=== PATIENT | female | born 1995 | race African-American/Black ===

== ENCOUNTER 2016-12-31 20:08 | Emergency (ER) | payer BC ==
[~2016-12-31] VITALS: Ht 165.1 cm; Wt 67.7 kg
[2016-12-31 20:14] VITALS: TEMP 37; Ht 165.1 cm; Wt 67.7 kg
[2016-12-31] MEDS ORDERED: SODIUM CHLORIDE 0.9% 1000ML 1,000 ML IV STA (20:30)
[2016-12-31 21:43] LABS: PARTIAL THROMBOPLASTIN RATIO 1.2; PROTHROMBIN TIME (PATIENT) 10.3 SECONDS (9.0-12.0)
[2016-12-31 21:49] LABS: URINE APPEARANCE CLEAR (CLEAR); URINE BILIRUBIN NEG (NEG); URINE COLOR YELLOW; URINE NITRITE NEG (NEG); URINE SPECIFIC GRAVITY 1.018 (1.000-1.030); UROBILINOGEN NEG (NEG)
[2016-12-31 21:50] LABS: BUN/CREATININE RATIO 11.5 (10-20); CALCIUM 9.6 mg/dl (8.5-10.1); CREATININE 0.73 mg/dl (0.60-1.20); POTASSIUM 3.4 mmol/L (3.5-5.1)
[2016-12-31 21:51] LABS: MANUAL MICROSCOPIC REQUIRED? NO; REVIEW REQ? NO
[2016-12-31 22:16] LABS: HEMATOCRIT 37.5 % (37-47); MEAN CELL VOLUME 83.9 fL (80-100); MEAN CORPUSCULAR HEMOGLOBIN 28.9 pg (25-34); MEAN CORPUSCULAR HGB CONC 34.4 g/dl (32-36); MEAN PLATELET VOLUME 9.5 fL (7.4-10.4); PLATELET COUNT 249 K/uL (130-400); RED BLOOD COUNT 4.47 M/uL (4.2-5.4); WHITE BLOOD COUNT 2.93 K/uL (4.8-10.8)
[2016-12-31 22:17] LABS: COMPLETE YES; EOS % 5.5 %; LYMPH % 58.7 %; LYMPH ABS # 1.72 K/uL (1.2-3.4); MONO % 6.1 %; NEUT % 29.7 %; PLT ESTIMATE NORMAL
--- NOTE | 2016-12-31 22:35 | DIAGNOSTIC IMAGING REPORT ---
ABDOMEN LIMITED (US) CLINICAL HISTORY: 21 years-old Female presenting with eval for appendicitis, right lower quadrant pain, pain the lower and mid abdomen. TECHNIQUE: Real-time grayscale and limited color Doppler ultrasound imaging of the right lower quadrant was performed to evaluate the appendix. COMPARISON: None. FINDINGS: Appendix not visualized. No free fluid or hyperechogenic fat to suggest secondary signs of inflammation. Prominent right lower quadrant lymph nodes, the largest measuring 1.7 x 0.4 x 1.9 cm. IMPRESSION: Appendix not visualized, although no secondary signs of inflammation. This does not exclude the diagnosis of appendicitis. Electronically signed by: Sánchez Koroma M.D. 12/31/2016 10:33 PM Dictated Date/Time: 12/31/2016 10:32 PM
--- NOTE | 2016-12-31 22:37 | DIAGNOSTIC IMAGING REPORT ---
PELVIC COMPLETE NON OB, TRANSVAG-FEMALE PELVIS CLINICAL HISTORY: 21 years-old Female presenting with eval fro cyst/torsion, right lower quadrant and mid abdominal pain. Irregular menstrual cycles, last period 2 weeks ago. TECHNIQUE: Real-time grayscale and color and spectral Doppler ultrasound imaging of the pelvis was performed first using a transabdominal probe and subsequently transvaginal for better characterization. COMPARISON: None. FINDINGS: Uterus: Normal. Anteverted. The uterus measures 7.0 x 2.8 x 4.1 cm. Endometrial stripe measures 1 mm in thickness. Endometrium normal-appearing. Cervix normal. Right adnexa: Right ovary normal. Right ovary measures 3.9 x 1.7 x 2.3 cm. Normal color Doppler flow and arterial and venous waveforms within the ovarian parenchyma. Left adnexa: Left ovary likely contains a dominant follicle. Left ovary measures 3.0 x 1.8 x 2.0 cm. Normal color Doppler flow and arterial and venous waveforms within the ovarian parenchyma. Other: Trace free fluid, likely physiologic. IMPRESSION: No evidence of ovarian torsion. Normal pelvic ultrasound. Electronically signed by: Sánchez Koroma M.D. 12/31/2016 10:36 PM Dictated Date/Time: 12/31/2016 10:33 PM
[2016-12-31] MEDS ORDERED: OPTIRAY 320 IV PRN (23:30)
--- NOTE | 2017-01-01 01:10 | EMERGENCY ROOM VISIT NOTE ---
History Report prepared by Kimi: Nell Prado Under the Supervision of: Dr. Randy Knight M.D. First contact with patient: 20:17 Chief Complaint: ABDOMINAL PAIN Stated Complaint: PAIN IN LOWER/MID ABDOMEN, MUSCLE SPASM History of Present Illness The patient is a 21 year old female who presents to the Emergency Room with complaints of persistent RLQ abdominal pain starting 1.5 weeks ago. The pain started during her period leading her to think she was having some menstrual cramps. She presents to the ED today because her pain persists and she has had her period for 2 weeks now. She describes the pain as sharp. She is still having vaginal bleeding. She has had diarrhea for the past week. Her diarrhea is soft and not watery. She denies any urinary symptoms, fever, vomiting, or abnormal vaginal discharge. She denies any recent travel or oral antibiotic use. She does not have any medical problems. She denies any previous abdominal surgeries. She is sexually active. Her last sexual intercourse was 5 days ago. She does not always use a condom. She denies any prior pregnancies. Source of History: patient Onset: 1.5 weeks ago Position: abdomen (RLQ) Quality: sharp Timing: other (persistent) Associated Symptoms: + diarrhea, No fevers, No vomiting, No urinary symptoms Note: Pt reports vaginal bleeding. Pt denies abnormal vaginal discharge. Review of Systems See HPI for pertinent positives & negatives. A total of 10 systems reviewed and were otherwise negative. Past Medical & Surgical Medical Problems: (1) No significant past medical history Social History Smoking Status: Never Smoker Current/Historical Medications No Active Prescriptions or Reported Meds Allergies Coded Allergies: No Known Allergies (Unverified , 12/31/16) Physical Exam Vital Signs Date Time Temp Pulse Resp B/P (MAP) Pulse Ox O2 Delivery O2 Flow Rate FiO2 12/31/16 23:02 62 18 136/82 99 Room Air 12/31/16 21:39 77 18 126/76 96 Room Air 12/31/16 20:14 37.0 73 18 124/79 97 Room Air Physical Exam Constitutional: Vital signs reviewed. Eyes: Pupils are equal round reactive to light. Conjunctiva are noninjected. ENT: Pharynx is clear without erythema or exudate. Mucous membranes are moist. Neck supple without meningeal signs. Respiratory: Clear to auscultation bilaterally. Breath sounds are equal bilaterally. Cardiovascular: Regular rate and rhythm. No rubs or gallops. GI: Soft, nondistended. RLQ tenderness. No guarding. Bowel sounds are present. Musculoskeletal: No peripheral edema. No lower extremity tenderness. Integumentary: No cyanosis. Neurological: The patient is awake and alert. No focal deficits. Psychiatric: Normal affect. Medical Decision & Procedures Laboratory Results 12/31/16 20:50 Red Blood Count 4.47, Mean Corpuscular Volume 83.9, Mean Corpuscular Hemoglobin 28.9, Mean Corpuscular Hemoglobin Concent 34.4, Mean Platelet Volume 9.5, Neutrophils (%) (Auto) 29.7, Lymphocytes (%) (Auto) 58.7, Monocytes (%) (Auto) 6.1, Eosinophils (%) (Auto) 5.5, Basophils (%) (Auto) 0.0, Neutrophils # (Auto) 0.87, Lymphocytes # (Auto) 1.72, Monocytes # (Auto) 0.18, Eosinophils # (Auto) 0.16, Basophils # (Auto) 0.00 12/31/16 20:50 Test 12/31/16 20:50 12/31/16 21:15 12/31/16 23:19 White Blood Count 2.93 K/uL (4.8-10.8) Red Blood Count 4.47 M/uL (4.2-5.4) Hemoglobin 12.9 g/dL (12.0-16.0) Hematocrit 37.5 % (37-47) Mean Corpuscular Volume 83.9 fL (80-100) Mean Corpuscular Hemoglobin 28.9 pg (25-34) Mean Corpuscular Hemoglobin Concent 34.4 g/dl (32-36) Platelet Count 249 K/uL (130-400) Mean Platelet Volume 9.5 fL (7.4-10.4) Neutrophils (%) (Auto) 29.7 % Lymphocytes (%) (Auto) 58.7 % Monocytes (%) (Auto) 6.1 % Eosinophils (%) (Auto) 5.5 % Basophils (%) (Auto) 0.0 % Neutrophils # (Auto) 0.87 K/uL (1.4-6.5) Lymphocytes # (Auto) 1.72 K/uL (1.2-3.4) Monocytes # (Auto) 0.18 K/uL (0.11-0.59) Eosinophils # (Auto) 0.16 K/uL (0-0.5) Basophils # (Auto) 0.00 K/uL (0-0.2) RDW Standard Deviation 40.2 fL (36.4-46.3) RDW Coefficient of Variation 13.2 % (11.5-14.5) Immature Granulocyte % (Auto) 0.0 % Immature Granulocyte # (Auto) 0.00 K/uL (0.00-0.02) Platelet Estimate NORMAL Prothrombin Time 10.3 SECONDS (9.0-12.0) Prothromb Time International Ratio 1.0 (0.9-1.1) Activated Partial Thromboplast Time 30.9 SECONDS (21.0-31.0) Partial Thromboplastin Ratio 1.2 Anion Gap 7.0 mmol/L (3-11) Est Creatinine Clear Calc Drug Dose 110.6 ml/min Estimated GFR () 137.4 Estimated GFR (Non- 118.6 BUN/Creatinine Ratio 11.5 (10-20) Calcium Level 9.6 mg/dl (8.5-10.1) Total Bilirubin 0.3 mg/dl (0.2-1) Direct Bilirubin 0.1 mg/dl (0-0.2) Aspartate Amino Transf (AST/SGOT) 17 U/L (15-37) Alanine Aminotransferase (ALT/SGPT) 14 U/L (12-78) Alkaline Phosphatase 68 U/L (45-117) Total Protein 7.7 gm/dl (6.4-8.2) Albumin 4.2 gm/dl (3.4-5.0) Lipase 162 U/L (73-393) Human Chorionic Gonadotropin, Quant < 1 mIU/mL Urine Color YELLOW Urine Appearance CLEAR (CLEAR) Urine pH 5.0 (4.5-7.5) Urine Specific [place] 1.018 (1.000-1.030) Urine Protein NEG (NEG) Urine Glucose (UA) NEG (NEG) Urine Ketones TRACE (NEG) Urine Occult Blood TRACE (NEG) Urine Nitrite NEG (NEG) Urine Bilirubin NEG (NEG) Urine Urobilinogen NEG (NEG) Urine Leukocyte Esterase TRACE (NEG) Urine WBC (Auto) 5-10 /hpf (0-5) Urine RBC (Auto) 0-4 /hpf (0-4) Urine Hyaline Casts (Auto) 1-5 /lpf (0-5) Urine Epithelial Cells (Auto) 10-20 /lpf (0-5) Urine Bacteria (Auto) NEG (NEG) Urine Test NEG (NEG) Medications Administered Medications (Trade) Dose Ordered Sig/Aracely Route Start Time Stop Time Status Last Admin Dose Admin Sodium Chloride 1,000 ml @ 999 mls/hr Q1H1M STAT IV 12/31/16 20:30 12/31/16 21:30 DC 12/31/16 20:30 999 MLS/HR ED Course 2025: The patient was evaluated in room C12B. A complete history and physical exam was performed. Medical Decision This is a 21-year-old female who presents with right lower quadrant pain and diarrhea. Differential diagnosis includes ectopic , ovarian cyst, ovarian torsion, appendicitis, inflammatory bowel disease, colitis. I did perform a limited focused review of portions of the patient's old chart on the electronic medical record. The patient has had no prior visits to this hospital. I did evaluate the patient as noted above. The patient is presenting with a one half week history of right-sided abdominal pain. She also had some diarrhea as well. She states her diarrhea is loose but not watery without blood. On exam she is tender in the right lower quadrant. IV access was established. I did order and personally review the patient's urine analysis as described above. I did order and review the patient's blood work as noted in the electronic medical record. testing is negative. Her ANC is less than 800. She has no history of neutropenia. A peripheral smear was sent. I did order an ultrasound of the right lower quadrant and pelvis. I did review the images myself as well as the radiology report as described above. The appendix was not visualized making the ultrasound nondiagnostic. Pelvic ultrasound was unremarkable. I did discuss the test results with the patient. I did recommend CT scanning to evaluate for appendicitis or other acute abnormalities. I did discuss the blood tests with her as well. I did order a CT which is currently pending. The patient was signed out to Dr. Salgado. Medication Reconcilliation Current Medication List: was personally reviewed by me Blood Pressure Screening Patient's blood pressure: Elevated blood pressure Blood pressure disposition: Elevated BP felt to be situational Impression Primary Impression: Right lower quadrant abdominal pain Additional Impression: Neutropenia Scribe Attestation The scribe's documentation has been prepared under my direct and personally reviewed by me in its entirety. I confirm that the note above accurately reflects all work, treatment, procedures, and medical decision making performed by me. Departure Information Dispostion Still a Patient Prescriptions No Active Prescriptions or Reported Meds Referrals No Doctor, Assigned (PCP) Patient Instructions My [facility] Problem Qualifiers Additional Impression: Neutropenia Neutropenia type: unspecified Qualified Codes: D70.9 - Neutropenia, unspecified
[2017-01-01 01:29] VITALS: BP 131/71; PULSE 66; O2SAT 99
--- NOTE | 2017-01-01 06:07 | EMERGENCY ROOM VISIT NOTE ---
ED Visit Note First contact with patient: 03:06 21 yr old female arrives for evaluation of RLQ abdominal pain this evening. Initially evaluated by Dr Knight and after normal pelvic US a CT of abdomen ordered and she was signed out to me pending this result. Of note with moderate neutropenia. She is afebrile. Notes recent viral like illness which I would suspect is cause of neutropenia. She looks and feels well. CT is negative. With normal work-up other than WBC I do not see clear need for admission nor transfer. She very much wishes to get home which I feel is reasonable. Stressed follow up with S and reviewed symptoms requiring RTED. Stable without complaint at discharge.
--- NOTE | 2017-01-01 11:11 | DIAGNOSTIC IMAGING REPORT ---
ABD/PELVIS IV AND ORAL CONT HISTORY: 21 years-old Female eval for appe acute right lower quadrant abdominal pain. Initial exam COMPARISON: Pelvic ultrasound of same day TECHNIQUE: Multiple axial CT images of the abdomen and pelvis were obtained following the intravenous administration of 94 mCi 320. Oral contrast also administered. A dose lowering technique was used consistent with the principals of EVANS. FINDINGS: Lung bases are clear. No pneumoperitoneum. Imaged inferior cardiac chambers are unremarkable. The liver, gallbladder, pancreas, spleen and adrenal glands are unremarkable. Kidneys, ureters and urinary bladder are unremarkable. Uterus and adnexa are also within normal limits. The abdominal aorta is normal in course and caliber. No bulky retroperitoneal adenopathy. No bowel obstruction or focal bowel wall thickening. Moderate stool burden. The appendix appears normal as seen on image 320 of series 3. Soft tissues are unremarkable. Bones are intact. Transitional lumbosacral anatomy is noted. IMPRESSION: No acute intra-abdominal or intrapelvic abnormality identified. No evidence of acute appendicitis. The above report was generated using voice recognition software. It may contain grammatical, syntax or spelling errors. Electronically signed by: Wilfredo Guidry M.D. 01/01/2017 11:10 AM Dictated Date/Time: 01/01/2017 10:51 AM
== END 2017-01-01 03:20 | disposition home or self-care (01) ==
LOC: C.EDB 20:10 → C.EDC 01-01 03:20
DX: R10.31 Right lower quadrant pain (principal); D70.9 Neutropenia, unspecified